=== PATIENT | female | born 1955 | race Caucasian/White ===

== ENCOUNTER → 2022-08-10 10:59 | Outpatient (CLI) | payer MEDICARE, SELFPAY ==
--- NOTE | 2022-08-10 | DI.RAD.S_ITS ---
PROCEDURE: XR CHEST 2V INDICATIONS: CHRONIC COUGH, NICOTINE DEPENDENCE TECHNIQUE: 2 views of the chest were acquired. COMPARISON: None. FINDINGS: Surgical changes and devices: None. Lungs and pleura: Lungs are clear. No pleural effusions or pneumothorax. Mediastinum: Mediastinal contours are normal. Heart size is normal. Bones and chest wall: No suspicious bony abnormalities. Soft tissues appear unremarkable. IMPRESSION: No acute pulmonary process. Dictated by: Maribell Srinivasan M.D. on 08/10/2022 at 15:11 Approved by: Maribell Srinivasan M.D. on 08/10/2022 at 15:12
== END ==
PROVIDERS: Family Provider Family Medicine; PCP Family Medicine; Referring Provider Family Medicine; Visit Provider Family Medicine
DX: R05.3 Chronic cough (principal); F17.210 Nicotine dependence, cigarettes, uncomplicated
CPT/HCPCS: 71046

== ENCOUNTER → 2022-09-21 13:58 | Outpatient (CLI) | payer MEDICARE, SELFPAY ==
--- NOTE | 2022-09-21 | DI.CT.S_ITS ---
PROCEDURE: CT CHEST WO CON INDICATIONS: Chronic cough TECHNIQUE: Noncontrast 5 mm thick sections acquired from the pulmonary apices to the posterior costophrenic angles. 1 mm lung window, 5 mm thick coronal and sagittal and 7 mm axial MIP reformats were then acquired. For radiation dose reduction, the following was used: automated exposure control, adjustment of mA and/or kV according to patient size. COMPARISON: [facility], CR, XR CHEST 2V, 08/10/2022, 11:16. FINDINGS: Image quality: Adequate Lungs and pleura: Moderate emphysema. No lobar consolidation or pleural effusion. Few irregular cysts present in the left upper lobe, nonspecific. Mild bronchial wall thickening present. Airway secretions or aspirated material in the right mainstem bronchus. Mediastinum: No pericardial effusion. Thoracic aorta and central pulmonary arteries are normal in size. Esophagus is normal in caliber. Multivessel coronary artery calcifications and/or stents. Bones and chest wall: Multilevel degenerative change of the visualized spine. No axillary or supraclavicular adenopathy by size criteria. Abdomen: Possible cholelithiasis, partially imaged. IMPRESSION: 1. Moderate emphysema. 2. Bronchial wall thickening is present, nonspecific, could indicate a bronchitis. 3. Several irregular cysts are present within the left upper lobe, nonspecific. These could represent pneumatoceles such as sequela of prior infection or inflammation but irregular cystic change can also be seen in etiologies such as Langerhans cell histiocytosis. Langerhans cell histiocytosis typically results in more diffuse changes however. 4. Possible cholelithiasis, partially imaged. Abdominal ultrasound could be obtained for further evaluation if indicated. Dictated by: Jesse Junior M.D. on 09/21/2022 at 14:59 Approved by: Jesse Junior M.D. on 09/21/2022 at 15:13
== END ==
PROVIDERS: Family Provider Family Medicine; PCP Family Medicine; Referring Provider Family Medicine; Visit Provider Family Medicine
DX: J43.9 Emphysema, unspecified (principal); J98.4 Other disorders of lung; R05.3 Chronic cough
CPT/HCPCS: 71250

== ENCOUNTER → 2024-04-28 11:11 | Outpatient (CLI) | payer MEDICARE, SELFPAY ==
--- NOTE | 2024-04-28 11:14 | DI.CT.S_ITS ---
PROCEDURE: CT ANGIO ABDOMEN PELVIS INDICATIONS: INFRARENAL AAA WO RUPTURE TECHNIQUE: After the administration of intravenous contrast, 2.5 mm thick sections acquired from the diaphragm to the symphysis. 10 mm maximum-intensity projection (MIP) reformats were then acquired. For radiation dose reduction, the following was used: automated exposure control. COMPARISON: [facility], CT, CT CHEST WO CON, 09/21/2022, 14:00. [facility], CT, CT CHEST WITHOUT CONTRAST, 04/18/2024, 7:16. FINDINGS: Image Quality: Diagnostic. Abdominal aorta: There is a infrarenal abdominal aortic aneurysm with ectasia of the aorta at the renal artery origins, and immediately below development of a large infrarenal abdominal aortic aneurysm measuring up to 5.2 cm AP and 5.6 cm transverse. This has a craniocaudad length of up to 11.5 cm and extends through the aortic bifurcation and distally along the course of the right common iliac artery. The aneurysm there terminates at the bifurcation to the external and internal iliac arteries on the right. There is no evidence of perianeurysmal fibrosis or hemorrhage. The inferior mesenteric artery is seen to be patent extending deep into the pelvis.. Mesenteric arteries: Patent without hemodynamically significant stenosis. Renal arteries: Patent without hemodynamically significant stenosis. OTHER: Lower Chest: No significant findings. Liver: No solid mass. Previously present subcapsular right anterior hepatic segment calcification, likely granulomatous in origin. This measures approximately 1.2 cm in maximal dimension. Gallbladder: No gallbladder distension or wall thickening but at least 1 moderate-sized partially calcified gallstone is present. Biliary ducts: No biliary dilation. Pancreas: No ductal dilation. Spleen: Size is within normal limits. Adrenal Glands: No adrenal nodules. Kidneys and Ureters: No hydronephrosis. No solid mass. No complex renal cystic lesion which requires follow up. Stomach and Bowel: Normal colonic caliber, without significant wall thickening. Peritoneum: No abnormal intraperitoneal fluid. No free air. Ventral Wall: No hernia. Abdominal Nodes: No retroperitoneal or mesenteric adenopathy by size criteria. Vessels: Aorta and inferior vena cava are normal in size. PELVIS: Pelvic Organs: Unremarkable. Bladder: Unremarkable. Pelvic Nodes: No enlarged lymph nodes. Miscellaneous: No inguinal hernias are seen. Bones: No aggressive osseous abnormality. IMPRESSION: Large immediate infrarenal abdominal aortic aneurysm measuring up to 5.7 cm AP and 11.5 cm craniocaudad extending contiguous of the through the bifurcation into the right common iliac artery terminating at the ISABELLE bifurcation. Significant risk for spontaneous rupture, vascular surgical consultation is recommended. Non-obstructing moderate-sized partially calcified gallstone within the gallbladder lumen. No evidence of associated biliary distension or gallbladder inflammation. Dictated by: Brandon Bird M.D. on 04/28/2024 at 14:51 Approved by: Brandon Bird M.D. on 04/28/2024 at 15:04
[2024-04-28 11:35] LABS: Estimated Glomerular Filt Rate > 60 mL/min (>60)
== END ==
PROVIDERS: Radiology Diagnostic Radiology; Family Provider Family Medicine; PCP Family Medicine; Referring Provider Family Medicine; Visit Provider Family Medicine
DX: I71.43 Infrarenal abdominal aortic aneurysm, without rupture (principal); K80.20 Calculus of gallbladder without cholecystitis without obstruction
CPT/HCPCS: 36415; 74174; 82565; Q9967